=== PATIENT | female | born 1980 | race Caucasian/White ===

== ENCOUNTER → 2023-07-24 10:28 | Outpatient (REF) | payer BC, SELFPAY | LOC: WDC 10:28 | PROVIDERS: ATTENDING PHYSICIAN Family Medicine | DX: N63.22 Unspecified lump in the left breast, upper inner quadrant (principal) | CPT/HCPCS: 76642; 77061; 77065 ==

== ENCOUNTER → 2024-04-17 07:53 | Outpatient (REF) | payer BC, SELFPAY | LOC: MRI 07:53 | PROVIDERS: ATTENDING PHYSICIAN Nurse Practitioner | DX: Z87.820 Personal history of traumatic brain injury (principal); G43.909 Migraine, unspecified, not intractable, without status migrainosus | CPT/HCPCS: 70553; A9575 ==